=== PATIENT | female | born 1960 | race Hispanic/Latino ===

== ENCOUNTER 2018-09-12 23:13 | Emergency (ER) | payer BC ==
--- NOTE | 2018-09-12 23:16 | C.PDOC ---
History Of Present Illness 58 year old female presents to the ED c/o sudden onset right sided lower back pain radiating to the groin. Patient also reports having some nausea and vomit. Patient rates her pain as 7/10. Patient denies fever, chills, diarrhea, dysuria, hematuria, rash. Upon further discussion, patient states that she did have a 3- [address] yesterday, driving from [place] home. Denies shortness of breath Time Seen by Provider: 09/12/18 23:15 History Per: Patient History/Exam Limitations: no limitations Onset/Duration Of Symptoms: Sudden Onset Current Symptoms Are (Timing): Still Present Severity: Severe Pain Scale Rating Of: 7 Recent travel outside of the [place]: No Additional History Per: Patient Past Medical History Reviewed: Historical Data, Nursing Documentation, Vital Signs - Medical History PMH: No Chronic Diseases Surgical History: No Surg Hx Family History: States: Unknown Family Hx - Social History Hx Tobacco Use: No Hx Alcohol Use: No Hx Substance Use: No Review Of Systems Constitutional: Negative for: Fever, Chills Cardiovascular: Negative for: Chest Pain Respiratory: Negative for: Shortness of Breath Gastrointestinal: Positive for: Nausea, Vomiting, Abdominal Pain Musculoskeletal: Positive for: Back Pain Skin: Negative for: Rash Neurological: Negative for: Weakness, Numbness, Headache, Dizziness Physical Exam - Physical Exam Appears: Non-toxic, No Acute Distress Skin: Warm, Dry Head: Normacephalic Eye(s): bilateral: Normal Inspection Oral Mucosa: Moist Neck: Supple Chest: Symmetrical, Tenderness (thoracic back area, ) Cardiovascular: Rhythm Regular Respiratory: No Rales, No Rhonchi, No Wheezing Gastrointestinal/Abdominal: Soft, No Tenderness, No Guarding, No Rebound Back: CVA Tenderness (right) Extremity: Normal ROM Extremity: Bilateral: Atraumatic, Normal Color And Temperature, Normal ROM Pulses: Left Dorsalis Pedis: Normal, Right Dorsalis Pedis: Normal Neurological/Psych: Oriented x3, Normal Speech, Normal Cognition Gait: Steady ED Course And Treatment - Laboratory Results Result Diagrams: 09/12/18 23:44 09/12/18 23:36 ECG: Interpreted By Me, Viewed By Me ECG Rhythm: Sinus Rhythm (51), Nonspecific Changes O2 Sat by Pulse Oximetry: 100 (ON RA) Pulse Ox Interpretation: Normal - CT Scan/US CTA Other Rad Studies (CT/US): Read By Radiologist, Radiology Report Reviewed CT/US Interpretation: CTA OF THE CHEST WITH IV CONTRAST. CLINICAL HISTORY: Back pain. TECHNIQUE: Axial and reformatted sagittal and coronal images of the chest obtained after bolus IV contrast administration. FINDINGS: Bilateral basilar atelectatic pulmonary changes. Normal enhancement of the main pulmonary artery and right and left pulmonary arteries. Normal enhancement of the bilateral peripheral pulmonary arteries. There is no demonstrated pulmonary embolism. Normal thoracic aorta and visualized great vessels. There is no demonstrated aortic dissection. Normal heart and pericardium. Normal mediastinum. Normal hilar regions. Normal visualized trachea and bronchi. The lungs are well expanded. Normal pulmonary parenchyma. Normal pleura. Normal chest wall struc tures. Normal osseous structures. Mild sliding hiatal hernia. Cholelithiasis without acute cholecystitis. IMPRESSION: No demonstrated pulmonary embolism or arterial dissection. Bilateral basilar atelectatic pulmonary changes. Small sliding hiatal hernia. . Electronically signed on Sep 13, 2018 2:22:52 AM EST by: Juju Azar M.D., Certified by [facility], MS[facility], Neuroradiology. Progress Note: Plan: - Labs. - Morphine 2 mg IVP. - Pepcid 20 mg IVP. - IV fluids. - Toradol 30 mg IVP. - Zofran 4 mg IVP. - UA Reevaluation Time: 02:38 Reassessment Condition: Improved Medical Decision Making Medical Decision Making: Upon provider reevaluation patient is feeling better, is medically stable, and requires no further treatment in the ED at this time. Patient will be discharged home with Rx for zofran and tramadol. Counseling was provided and all questions were answered regarding diagnosis and need for follow up with the referred clinic. There is agreement to discharge plan. Return if symptoms persist or worsen. Disposition Counseled Patient/Family Regarding: Studies Performed, Diagnosis, Need For Followup, Rx Given - Disposition Disposition: HOME/ ROUTINE Disposition Time: 23:16 Condition: FAIR Additional Instructions: Please return if symptoms recur and do follow up with your doctor and possible surgical consult Prescriptions: Ondansetron ODT [Zofran ODT] 1 odt PO BID PRN #6 odt PRN Reason: Nausea/Vomiting traMADol [Ultram] 50 mg PO QID PRN #20 tab PRN Reason: Pain, Severe (8-10) Instructions: Gallstones (DC) - Clinical Impression Clinical Impression: Biliary colic - Scribe Statement The provider has reviewed the documentation as recorded by the Scribe Micah Evangelista All medical record entries made by the Scribe were at my direction and personall y dictated by me. I have reviewed the chart and agree that the record accurately reflects my personal performance of the history, physical exam, medical decision making, and the department course for this patient. I have also personally directed, reviewed, and agree with the discharge instructions and disposition.
[2018-09-12] MEDS: Sodium Chloride 0.9% 1,000 ML IV ONE (23:35)
[2018-09-12 23:48] LABS: BASO % 0.6 % (0.0-2.0); EOS # 0.3 K/uL (0.0-0.7); EOS % 3.4 % (0.0-4.0); HEMOGLOBIN 13.8 g/dL (11.0-16.0); LYMPH # 4.4 K/uL (1.0-4.3); LYMPH % 55.3 % (20.0-40.0); MEAN CELL VOLUME 94.7 fL (81.0-99.0); MEAN CORPUSCULAR HEMOGLOBIN 31.9 pg (27.0-31.0); MEAN CORPUSCULAR HGB CONC 33.6 g/dL (33.0-37.0); MEAN PLATELET VOLUME 9.5 fL (7.2-11.7); MONO # 0.6 K/uL (0.0-0.8); MONO % 7.5 % (0.0-10.0); NEUT # 2.6 K/uL (1.8-7.0); NEUT % 33.2 % (50.0-75.0); PLATELET COUNT 269 K/uL (130-400); RBC 4.34 Mil/uL (3.80-5.20); WHITE BLOOD COUNT 7.9 K/uL (4.8-10.8)
[2018-09-12 23:51] LABS: ALB/GLOB RATIO 1.4 (1.0-2.1); ALBUMIN 4.7 g/dL (3.5-5.0); BLOOD UREA NITROGEN 17 mg/dL (7-17); CALCIUM 9.5 mg/dl (8.6-10.4); GFR NON-AFRICAN AMERICAN > 60; LIPASE 117 U/L (23-300)
[2018-09-12 23:52] LABS: SQUAMOUS EPITHIAL < 1 /hpf (0-5); URINE BACTERIA OCC (<OCC); URINE BILIRUBIN NEGATIVE (NEGATIVE); URINE BLOOD NEGATIVE (NEGATIVE); URINE CALCIUM OXALATE CRYSTALS OCC /hpf (<OCC); URINE CLARITY Clear (Clear); URINE COLOR Yellow (YELLOW); URINE GLUCOSE (UA) NORMAL (Normal); URINE LEUKOCYTE ESTERASE 1+ Leu/uL (Negative); URINE PROTEIN 1+ mg/dL (NEGATIVE)
[2018-09-12] MEDS ORDERED: Morphine 4 MG/ML VIAL ONE (23:53)
[2018-09-13 00:27] LABS: INR 0.9; PROTHROMBIN TIME 10.3 SECONDS (9.7-12.2)
[2018-09-13] MEDS ORDERED: Iodixanol 320 MG/ML 100 ML BOTTLE IV ONE (00:38)
[2018-09-13 00:50] LABS: ALT/SGPT 17 U/L (9-52); AST/SGOT 66 U/L (14-36)
[2018-09-13 02:34] VITALS: BP 109/57; PULSE 66; RESP 15; TEMP 98.1
[2018-09-13 02:40] VITALS: O2SAT 100
[2018-09-13 02:46] LABS: EOSINOPHIL 2 % (0-4); LYMPHOCYTE 39 % (20-40); MONOCYTE 4 % (0-10); NEUTROPHIL 30 % (50-75); PLATELET ESTIMATE NORMAL (NORMAL); REACTIVE LYMPHOCYTES 25 % (0-0); TOTAL CELLS COUNTED 100
--- NOTE | 2018-09-13 10:31 | CT ---
Date of service: 09/13/2018 PROCEDURE: CT Chest with contrast (Pulmonary Angiogram) HISTORY: elevated d dimer, back pain COMPARISON: None available. TECHNIQUE: Axial computed tomography images were obtained of the chest in the pulmonary arterial phase of enhancement. Coronal and sagittal reformatted images were created and reviewed. Intravenous contrast dose: 100 mL of Visipaque 320 intravenously. Radiation dose: Total exam DLP = 332.01 mGy-cm. This CT exam was performed using one or more of the following dose reduction techniques: Automated exposure control, adjustment of the mA and/or kV according to patient size, and/or use of iterative reconstruction technique. FINDINGS: PULMONARY ARTERIES: Unremarkable. No pulmonary embolism. AORTA: No acute findings. No thoracic aortic aneurysm. No aortic atherosclerotic calcification or mural plaque present. LUNGS: No evidence of consolidation or mass in the lungs. Small bibasilar opacities likely atelectasis. PLEURAL SPACES: Unremarkable. No effusion or pneumothorax. HEART: The heart is upper normal limit in size. LYMPH NODES: No lymphadenopathy. BONES, CHEST WALL: Unremarkable. No fracture or destructive lesion OTHER FINDINGS: There is small hiatus hernia noted. IMPRESSION: No evidence of pulmonary embolus. Bilateral basilar atelectasis. Small sliding hiatus hernia. Preliminary report was submitted by [facility] contains concordant findings.
--- NOTE | 2018-09-13 18:26 | CARD ---
APPROVED REPORT Date of service: 09/13/2018 EKG Measurement Heart [id number] <Conclusion> Sinus bradycardia Otherwise normal ECG
== END 2018-09-13 02:56 | disposition home or self-care (01) ==
LOC: C.ER 23:13
DX: K80.50 Calculus of bile duct without cholangitis or cholecystitis without obstruction (principal)
CPT/HCPCS: 71275; 80053; 81001; 83690; 85025; 85378; 85610; 93005; 96361; 96374; 96375; 96376; 99284; J1885; J2270; J2405; J7030; Q9967